=== PATIENT | female | born 1985 | race Two or more races ===

== ENCOUNTER 2017-08-02 22:05 | Emergency (ER) | payer OTHER ==
[~2017-08-02] VITALS: Ht 162.6 cm; Wt 68.0 kg
[2017-08-02] MEDS ORDERED: KETO10TA2 PO (23:35)
[2017-08-02] MEDS ORDERED: ORPHENADRINE C100 MG PO (23:35)
== END 2017-08-03 02:24 | disposition home or self-care (01) ==
LOC: ER 22:05
DX: M94.0 Chondrocostal junction syndrome [Tietze] (principal)